=== PATIENT | female | born 1990 | race Caucasian/White ===

== ENCOUNTER 2016-09-07 10:54 | Inpatient (IN) ==
[2016-09-07] MEDS ORDERED: Acetaminophen 325 MG TABLET PO PRN (11:10)
[2016-09-07] MEDS ORDERED: *HR* LORazepam 1 MG TABLET PO PRN (11:10)
[2016-09-07] MEDS ORDERED: *HR* LORazepam 2 MG/ML VIAL IM PRN (11:10)
[2016-09-07] MEDS ORDERED: Haloperidol Lactate 5 MG/ML VIAL IM PRN (11:10)
[2016-09-07] MEDS ORDERED: hydrOXYzine pamoate 25 MG CAPSULE PO PRN (11:10)
[2016-09-07] MEDS ORDERED: MOM Conc 10 ML UD.LIQ PO PRN (11:10)
[2016-09-07] MEDS ORDERED: traZODone 50 MG TABLET PO PRN (11:10)
[2016-09-07] MEDS ORDERED: Mag Hydrox/Al Hydrox/Simeth 30 ML UDC PO PRN (11:10)
--- NOTE | 2016-09-07 13:13 | Psychiatry History & Physical ---
Date of Encounter: 09/07/16 Time of Encounter: 13:05 History of Present Illness Patient Stated Chief Complaint: suicidal ideation Medicare Admission Attestation: For traditional Medicare patients the provided hospital inpatient services are reasonable and necessary and in the case of services not specified as inpatient -only under 42 CFR 419.22 (n), that they are appropriately provided as inpatient services in accordance 42 CFR 412.3. For Critical Access Hospital the patient may reasonably be expected to be discharged or transferred to a hospital within 96 hours after admission to the Critical Access Hospital. Admitted From: Home Plans for Post Hospital Care: Home History of Present Illness: Ms. Wills is a 26 year old female who was admitted secondary to SI. Historical diagnosis of Bipolar Disorder. Currently five weeks post . Has been off meds since start of . Previously prescribed Neurontin and Latuda. Does not present as psychotic but she endorses AH/VH and paranoid thoughts. Also reporting new onset HI toward fiancee and baby. No reported substance abuse. Medically healthy except for gestational diabetes and hypothyroidism. Currently . Pumping here in hospital. Discussed how psych meds do pass into the breast milk and nothing is 100% safe. Does not want to restart Neurontin. Latuda is a relatively new agent and there are likely no truck terminal manager studies on while taking this medication. Discussed Trilafon as an option. Informed client that medication does pass into the breast milk but at reduced dosages. Also an older drug so more info available. She plans to discuss medication with her OB and daughters Industrial Retrofit Designer. Will continue to pump in the hospital and label her breast milk once she starts the medication in case she decides against while on medication. Currently has a one week supply of breast milk at home. Past Med Surg Social Fam HX - Past Medical History Medical history: diabetes, thyroid disease - Past Psychiatric History Psychiatric history: Reports: bipolar, depression Family psychiatric history: Unknown Family History of Suicide: Unknown - Social History Smoking Status: Never smoker Smokeless Tobacco Status: Yes (1-2 pouches a couple times a week for a week) Alcohol use: none Drug use: none Medications & Allergies Allergies albuterol Allergy (Verified 09/07/16 11:09) Anaphylaxis Review of Systems Constitutional: Denies: fever, chills, weakness, weight change Eyes: Denies: eye pain, vision change Ears, Nose, Throat: Denies: ear pain, throat pain, dental pain, hearing loss, congestion Cardiovascular: Denies: chest pain, palpitations, dyspnea on exertion Respiratory: Denies: cough, dyspnea, wheezes Gastrointestinal: Denies: abdominal pain, nausea, vomiting, diarrhea, constipation Genitourinary male: Denies: urgency, dysuria, frequency, genital lesions Genitourinary female: Denies: urgency, dysuria, frequency, abnormal menses, dyspareunia Musculoskeletal: Denies: joint swelling, joint pain Integumentary: Denies: rash, lesions, pruritus Neurological: Denies: headache, weakness, numbness, memory loss Endocrine: Denies: fatigue, heat or cold intolerance Hematologic/Lymphatic: Denies: easy bruising, lymphadenopathy Allergic/Immunologic: Denies: urticaria, itchy eyes Mental Status Exam Patient orientation: Yes Person, Yes Time, Yes Place Level of alertness: Alert Patient appearance: Appropriate Behavior: calm, cooperative Psychomotor activity: Normal Eye contact: Maintains Eye Contact Mood description: Depressed Affect description: congruent with mood Speech pattern: Normal rate, Normal rhythm, Normal tone Speech volume: Normal Thought process: Linear Thought content: Yes Suicidal ideation, Yes Homicidal ideation, No Overt delusions Perceptual disturbances: Yes Auditory hallucinations, Yes Visual hallucinations Attention span: Capable of Focused Attention Memory description: Grossly Intact Patient reliability: Reliable Historian Intelligence estimate: Average Judgment: Limited Insight: Partial Exam - HEENT Head exam IM: Present: atraumatic Eye exam IM: Present: EOMI - Neurological Neurological exam IM: Present: oriented X3, no focal deficits - Respiratory Respiratory exam IM: Present: CTAB - GI/Abdominal GI/Abdominal exam IM: Present: normal bowel sounds - Extremities Extremities exam IM: Present: full ROM - Skin Skin exam IM: Present: intact Results - Vital Signs Vital signs: Temp Pulse Resp BP 97.6 F 58 16 108/60 09/07/16 10:54 09/07/16 10:54 09/07/16 10:54 09/07/16 10:54 Assessment and Plan (1) Suicidal ideation Current visit: Yes Status: Acute Plan: Admit inpatient for safety and stabilization, Close observation, Suicide Precautions per unit protocol, Encourage participation in unit milieu, Group Therapy, Monitor sleep, Monitor appetite Risks, benefits, side effects, alternatives discussed w/pt: Yes Patient agreeable to treatment: Yes Plans for Post Hospital Care: Home Estimated Length of Stay (Days): 5
[2016-09-07] MEDS: Perphenazine 8 MG TABLET PO SCH (20:27)
--- NOTE | 2016-09-08 13:13 | Psychiatry Progress Note ---
Date of Encounter: 09/08/16 Time of Encounter: 13:06 Subjective Interval history: Looking much better today. Had a good visit with her fiancee and daughter last night and she reports the visit was great. No HI toward them during or after the visit. Feeling more confident in her ability to be around her child and provide care. Stressed that it was important not to be alone with her child until cleared at her first outpatient psychiatry appointment. Client expressed understanding and indicated that was her plan anyway. Sister is staying with her and can help spell her at night. Most of client's improvement is likely due to a good nights sleep last night. Client has not been sleeping well at home due to having a five week old baby and getting up every two hours to pump. Reports she needs her sleep. Recognizes she is feeling better and she looks much improved. Discussed dangers of post period and how it is important to be/feel stable. Will monitor her for another day at least. However, if visit goes well tonight and she is still feeling safe can likely discharge her tomorrow. Sister and flexe will be with her to provide support and she is already linked with services. Compliant with treatment and only stopped meds secondary to becoming . Denies side effects to Trilafon. Review of Systems Constitutional: Denies: fever, chills, weakness, weight change Eyes: Denies: eye pain, vision change Ears, Nose, Throat: Denies: ear pain, throat pain, dental pain, hearing loss, congestion Cardiovascular: Denies: chest pain, palpitations, dyspnea on exertion Respiratory: Denies: cough, dyspnea, wheezes Gastrointestinal: Denies: abdominal pain, nausea, vomiting, diarrhea, constipation Musculoskeletal: Denies: joint swelling, joint pain Neurological: Denies: headache, weakness, numbness, memory loss Objective: Exam Patient orientation: Yes Person, Yes Time, Yes Place Level of alertness: Alert Patient appearance: Appropriate Behavior: calm, cooperative Psychomotor activity: Normal Eye contact: Maintains Eye Contact Mood description: Euthymic/stable Affect description: congruent with mood Speech pattern: Normal rate, Normal rhythm, Normal tone Speech volume: Normal Thought process: Linear, Goal Oriented Thought content: No Suicidal ideation, No Homicidal ideation, No Overt delusions Perceptual disturbances: No Auditory hallucinations, No Visual hallucinations Judgment: Fair Insight: Partial Results - Vital Signs Vital Signs: Temp Pulse Resp BP 97.8 F 74 16 119/63 09/08/16 08:33 09/08/16 08:33 09/08/16 08:33 09/08/16 08:33 Assessment and Plan (1) Suicidal ideation Current visit: Yes Status: Acute Plan: Continue hospitalization, Close observation, Suicide Precautions per unit protocol, Encourage participation in unit milieu, Group Therapy, Monitor sleep, Monitor appetite Risks, benefits, side effects, alternatives discussed w/pt: Yes Patient agreeable to treatment: Yes
[2016-09-08] MEDS: Perphenazine 8 MG TABLET PO SCH (20:52)
[2016-09-09 08:55] VITALS: BP 112/69
--- NOTE | 2016-09-09 13:22 | Discharge Summary ---
Date of Encounter: 09/09/16 Time of Encounter: 13:16 Diagnosis - Discharge Diagnosis (1) Suicidal ideation Status: Acute Medications - Discharge Medications Prescriptions: Perphenazine [Trilafon] 8 mg PO HS #30 tablet Levothyroxine [[place]throid] [place] [address]/07/16 [History] Norethindrone [Jencycla] 0.35 mg PO DAILY 09/07/16 [History] Perphenazine [Trilafon] 8 mg PO HS #30 tablet 09/09/16 [Rx] Allergies albuterol Allergy (Verified 09/07/16 11:09) Anaphylaxis Provider Date of admission: 09/07/16 10:54 Consults: 09/07/16 12:07 Consult to Pastoral Services [CONS] Routine Comment: Discharging clinician: Angi Hunter Assessment and Plan - Patient/Caregiver Discharge Instructions Activity: resume usual activities as tolerated Diet: low fat, low cholesterol - Follow up Plan Follow up with: [facility] [Outside] - 09/11/16 11:00 am (The above appointment is with César Carranza for counseling. You will also see Guanakito Tapia, psychiatric provider, on 09/26/2016 at 11:00am.) Functional capacity at discharge: independent ambulation Overall status at discharge: Stable Disposition: Home, Self-Care Hospital Course Hospital course: Ms. Wills is a 26 year old female who was admitted secondary to SI and HI toward fiancee and five week old baby. Started on Trilafon after much discussion of the risks involved since she is pumping her breast milk for the baby. Improved quickly on medication and quality sleep-not waking up every two hours to pump or care for daughter. Linked with services. Has counseling appointment on . Will not be alone with her daughter until cleared by outpatient psychiatrist. She and her fiancee will stay with her sister so there will be plenty of supports. Fiancee and daughter have visited daily and twice yesterday. Visits have gone well. Client reported when she was admitted the baby crying would agitate her but that now she is not feeling that way. Confident in her ability to stay safe and knows how to find help if symptoms return or worsen. Family supportive of discharge. Client is now denying all SI /HI/AH/VH. - Time Spent with Patient Total time spent providing and/or coordinating discharge services: Quality - Multiple Antipsychotics Patient discharged on 2 or more antipsychotic medications: No Procedures - Procedures Procedures: Medication Management, Crisis Stabilization, Supportive Therapy, Group Therapy Mental Status Exam - Mental Status Exam Patient orientation: Yes Person, Yes Time, Yes Place Level of alertness: Alert Patient appearance: Appropriate Behavior: calm, cooperative Psychomotor activity: Normal Eye contact: Maintains Eye Contact Mood description: Euthymic/stable Affect description: congruent with mood Speech pattern: Normal rate, Normal rhythm, Normal tone Speech Volume: Normal Thought process: Linear, Goal Oriented Thought Content: No Suicidal ideation, No Homicidal ideation, No Overt delusions Perceptual Disturbances: No Auditory hallucinations, No Visual hallucinations Judgment: Fair Insight: Partial
== END 2016-09-09 16:05 | disposition home or self-care (01) | DRG 561 ==
LOC: 1ANU 10:54
PROVIDERS: ADMIT Psychiatry & Neurology Psychiatry; ATTEND Psychiatry & Neurology Psychiatry